=== PATIENT | female | born 1940 | race Caucasian/White ===

== ENCOUNTER 2016-08-30 11:58 | Day surgery (SDC) | payer OTHER ==
[~2016-08-30] VITALS: Ht 160 cm; Wt 97.1 kg
[~2016-08-30 11:58] MED LIST: AMLO5TAB4 PO; ASPI-862 PO; CELE200C PO; CLINDAMYCIN PHOS 600 MG/ D5W 50 ML PREMIX IV ONE; HYDR-1189 PO; HYDR12.585 PO; LOSA100T11 PO; METO-442 PO; OMEP20CA10 PO
[2016-08-30 12:36] VITALS: O2SAT 96
[2016-08-30] MEDS ORDERED: LR 1,000 ML IV SCH (13:44)
[2016-08-30] MEDS ORDERED: HYDROmorphone 2 MG/ML VIAL IVP PRN ×2 (13:45)
[2016-08-30] MEDS ORDERED: MEPERIDINE HCL/PF 25 MG/ML DISP.SYRIN IVP PRN ×2 (13:45)
[2016-08-30] MEDS ORDERED: ONDANSETRON HCL 4 MG/2 ML VIAL IVP PRN (13:45)
[2016-08-30] MEDS ORDERED: HYDROmorphone 1 MG INJ. 1 MG/ML AMPUL IVP PRN ×2 (13:45→15:00)
[2016-08-30] MEDS ORDERED: BUPIVACAINE /EPINEPHRINE/PF 0.25% 30 ML VIAL INJ ONE (14:00)
[2016-08-30] MEDS ORDERED: HEPARIN SODIUM, PORCINE 10,000 UNITS/ 10 ML VIAL ONE (14:00)
[2016-08-30] MEDS ORDERED: SEVOFLURANE 15 MIN GAS INH ONE (14:00)
[2016-08-30] MEDS ORDERED: KETOROLAC TROMETHAMINE 30 MG VIAL ONE (14:00)
[2016-08-30] MEDS ORDERED: fentaNYL CITRATE/PF 100 MCG/2 ML AMP ONE (14:00)
[2016-08-30] MEDS ORDERED: PROPOFOL 200MG/ 20ML VIAL (DIPRIVAN) IV ONE (14:00)
[2016-08-30] MEDS ORDERED: ONDANSETRON HCL 4 MG/2 ML VIAL ONE (14:00)
[2016-08-30] MEDS ORDERED: MIDAZOLAM HCL 5 MG/5 ML VIAL ONE (14:00)
[2016-08-30] MEDS ORDERED: CEFAZOLIN 1 GM IVPB PREMIX 50 ML IV ONE (14:00)
[2016-08-30] MEDS ORDERED: HEPARIN SODIUM,PORCINE/NS/PF 1,000 UNITS/500 ML BAG IV ONE (14:00)
[2016-08-30] MEDS ORDERED: IOHEXOL 50 ML IV ONE (14:10)
[2016-08-30] MEDS ORDERED: POLYMYXIN 500,000/BACIT.10,000 UNITS in NS IRR 1 L IR ONE (14:36)
[2016-08-30] MEDS ORDERED: D5/0.45 NS 1,000 ML IV SCH (14:46)
[2016-08-30] MEDS ORDERED: HYDROcodone/ACETAMIN 5-325 MG TAB (NORCO/ VICODIN) PO PRN ×2 (15:00)
[2016-08-30 15:41] VITALS: BP 100/54; PULSE 78; RESP 14
== END 2016-08-30 16:25 | disposition home or self-care (01) ==
LOC: SMU 11:58 → SDS 11:58
PROVIDERS: ATTEND Colon & Rectal Surgery
DX: C55 Malignant neoplasm of uterus, part unspecified (principal); I12.9 Hypertensive chronic kidney disease with stage 1 through stage 4 chronic kidney disease, or unspecified chronic kidney disease; N18.3 Chronic kidney disease, stage 3 (moderate); E21.3 Hyperparathyroidism, unspecified; M06.9 Rheumatoid arthritis, unspecified; Z90.710 Acquired absence of both cervix and uterus
CPT/HCPCS: 36561; 71010; 76000; C1769; C1788; J0690; J1644 ×2; J1885; J2250; J2405; J2704; J3010; J3490 ×2; J7120; Q9967

== ENCOUNTER 2022-06-28 09:52 | Day surgery (SDC) | payer OTHER ==
[~2022-06-28] VITALS: Ht 160 cm; Wt 95.7 kg
[~2022-06-28 09:52] MED LIST changes: -CELE200C PO; -CLINDAMYCIN PHOS 600 MG/ D5W 50 ML PREMIX IV ONE; -HYDR-1189 PO; +HYDR-3919 PO; -LOSA100T11 PO; +LOSA100T3 PO; -OMEP20CA10 PO; +OMEP20CA15 PO
[2022-06-28] MEDS ORDERED: SIMETHICONE 40 MG/0.6 ML ML ONE (11:35)
[2022-06-28] MEDS ORDERED: fentaNYL CITRATE/PF 100 MCG/2 ML AMP ONE (11:35)
[2022-06-28] MEDS ORDERED: MIDAZOLAM HCL 5 MG/5 ML VIAL ONE (11:35)
[2022-06-28 13:34] VITALS: BP_SYST 166
== END 2022-06-28 13:12 | disposition home or self-care (01) ==
LOC: SDS 09:52 → SMU 09:52 → SDS 13:12
PROVIDERS: ATTEND Surgery
DX: Z43.3 Encounter for attention to colostomy (principal); K63.5 Polyp of colon; K57.30 Diverticulosis of large intestine without perforation or abscess without bleeding; Z20.822 Contact with and (suspected) exposure to COVID-19
CPT/HCPCS: 36415; 44389; 88305; 99152; 99153; U0003; G0378; J2250; J3010